=== PATIENT | female | born 1975 | race Two or more races ===

== ENCOUNTER 2019-05-12 20:57 | Emergency (ER) | payer MEDICAID ==
[~2019-05-12] VITALS: Ht 152.4 cm; Wt 61.0 kg
[2019-05-12 22:14] LABS: BASOPHILS # (AUTO) 0.05 x10^3/uL (0-0.1); BASOPHILS % (AUTO) 0 % (0-1); EOSINOPHILS # (AUTO) 0.09 x10^3/uL (0-0.4); EOSINOPHILS % (AUTO) 1 % (1-7); LYMPHOCYTES # (AUTO) 1.78 x10^3/uL (1-3.4); LYMPHOCYTES % (AUTO) 16 % (22-44); MD NO; MEAN CORPUSCULAR HEMOGLOBIN 32.8 pg (27.0-34.8); MEAN CORPUSCULAR HGB CONC 34.8 g/dL (32.4-35.8); MEAN CORPUSCULAR VOLUME 94.4 fL (80-100); MEAN PLATELET VOLUME 10.1 fL (7.4-10.4); MONOCYTES # (AUTO) 0.35 x10^3/uL (0.2-0.8); MONOCYTES % (AUTO) 3 % (2-9); NEUTROPHILS # (AUTO) 9.13 x10^3/uL (1.8-6.8); NEUTROPHILS % (AUTO) 80 % (42-75); PLATELET COUNT 191 x10^3/uL (130-400); RED BLOOD COUNT 4.57 x10^6/uL (3.82-5.3); RED CELL DISTRIBUTION WIDTH 12.1 % (9.6-15.2)
[2019-05-12 22:25] LABS: ANION GAP 4 mmol/L (5-15); CALCIUM 8.4 mg/dL (8.5-10.1); CHLORIDE 108 mmol/L (98-107)
[2019-05-12 22:26] LABS: ALANINE AMINOTRANSFERASE 59 U/L (12-78); ALBUMIN 3.7 g/dL (3.4-5.0)
--- NOTE | 2019-05-12 22:26 | NUR ---
INITIAL CONTACT WITH PT. ASSESSMENT DONE. LABS AND U/S HAVE BEEN DONE. CLEAN CATCH INSTRUCTIONS GIVEN FOR URINE COLLECTION. FAMILY AT BEDSIDE.
[2019-05-12 22:28] LABS: ALKALINE PHOSPHATASE 101 U/L (45-117); BILIRUBIN,TOTAL 0.4 mg/dL (0.2-1.0); TOTAL PROTEIN 7.4 g/dL (6.4-8.2)
[2019-05-12 23:03] LABS: MICROSCOPIC NOT IND
[2019-05-12 23:13] LABS: CULTURE INDICATED? NO
[2019-05-12] MEDS ORDERED: ONDANSETRON ODT 4 MG PO ONE (23:30)
[2019-05-12] MEDS ORDERED: MAALOX/HYOSCYAMINE/LIDOCAINE 45 ML BTL PO ONE (23:30)
[2019-05-12] MEDS ORDERED: DICYCLOMINE 10 MG/ML, 2ML IM ONE (23:30)
[2019-05-12] MEDS ORDERED: MAALOX/HYOSCYAMINE/LIDOCAINE 45 ML BTL ONE (23:33)
[2019-05-12] MEDS ORDERED: ONDANSETRON ODT 4 MG ONE (23:33)
[2019-05-12] MEDS ORDERED: DICYCLOMINE 10 MG/ML, 2ML ONE (23:33)
--- NOTE | 2019-05-12 23:37 | NUR ---
PT IN XRAY.
--- NOTE | 2019-05-12 23:59 | NUR ---
PT RETURNED FROM XRAY, MEDS GIVEN CHARTED, 5 RIGHTS VERIFIED.
[2019-05-13] MEDS ORDERED: HYDR-3240 PO (00:21)
--- NOTE | 2019-05-13 00:42 | NUR ---
PT DC'D HOME WITH RX X 4 AND UNDERSTANDING OF INSTRUCTION. PT STATES PAIN 0/10. PT TO DC DESK, GAIT STEADY.
[2019-05-13 00:43] VITALS: BP 125/79
== END 2019-05-13 00:45 | disposition home or self-care (01) ==
LOC: ED 05-13 00:21
DX: K29.00 Acute gastritis without bleeding (principal)
CPT/HCPCS: 36415; 74022; 76700; 80053; 81003; 81025; 83690; 85025; 93005; 96372; 99284; J0500; Q0162

== ENCOUNTER 2019-05-29 17:44 | Emergency (ER) | payer MEDICAID ==
[~2019-05-29] VITALS: Ht 152.4 cm; Wt 60.2 kg
[~2019-05-29 17:44] MED LIST: HYDR-3240 PO
[2019-05-29 17:51] VITALS: BP 132/97
--- NOTE | 2019-05-29 18:53 | NUR ---
pt moved from lobby to t1
[2019-05-29 19:28] LABS: MICROSCOPIC NOT IND
[2019-05-29 19:31] LABS: CULTURE INDICATED? NO
== END 2019-05-29 20:11 | disposition home or self-care (01) ==
LOC: ED 19:30
DX: T19.2XXA Foreign body in vulva and vagina, initial encounter (principal); R10.2 Pelvic and perineal pain; X58.XXXA Exposure to other specified factors, initial encounter; Y93.89 Activity, other specified; Y92.89 Other specified places as the place of occurrence of the external cause; Y99.8 Other external cause status
CPT/HCPCS: 81003; 99283